=== PATIENT | male | born 1985 | race African-American/Black ===

== ENCOUNTER 2017-08-20 14:15 | Emergency (ER) | payer BC ==
[~2017-08-20] VITALS: Ht 188 cm; Wt 106.0 kg
[2017-08-20 14:25] VITALS: BP 146/95
== END 2017-08-20 20:19 | disposition left against medical advice (07) ==
LOC: ER 14:50
DX: Z53.21 Procedure and treatment not carried out due to patient leaving prior to being seen by health care provider (principal)

== ENCOUNTER 2017-08-25 21:04 | Emergency (ER) | payer BC ==
[~2017-08-25] VITALS: Ht 188 cm; Wt 104.0 kg
[2017-08-26] MEDS ORDERED: KETOROLAC 30MG/ML VIAL IM SCH (02:15)
[2017-08-26] MEDS ORDERED: TETRACAINE 0.5% OPHTH DROPS 4ML OP SCH (02:15)
[2017-08-26] MEDS ORDERED: ONDANSETRON 4MG ODT PO SCH (02:15)
[2017-08-26] MEDS ORDERED: FLUORESCEIN SODIUM 1MG/STRIP OP SCH (02:15)
[2017-08-26 02:44] VITALS: BP 121/69
[2017-08-26] MEDS ORDERED: IBUPROFEN 600MG TABLET PO ONE (02:45)
== END 2017-08-26 03:45 | disposition home or self-care (01) ==
LOC: ER 21:51
DX: B30.0 Keratoconjunctivitis due to adenovirus (principal); R51 Headache
CPT/HCPCS: 99283; Q0162; J1885

== ENCOUNTER 2019-04-09 17:28 | Emergency (ER) | payer BC ==
[~2019-04-09] VITALS: Ht 185.4 cm; Wt 110.0 kg
[2019-04-09] MEDS ORDERED: DOCUSATE SODIUM SUGAR FREE 100MG/10ML UDC NG ONE (21:45)
[2019-04-09 22:38] VITALS: BP 155/95
== END 2019-04-09 22:40 | disposition home or self-care (01) ==
LOC: ER 20:07
DX: H61.22 Impacted cerumen, left ear (principal)
CPT/HCPCS: 99282